=== PATIENT | female | born 1965 | race Caucasian/White ===

== ENCOUNTER 2022-06-16 05:30 | Day surgery (SDC) | payer OTHER ==
[~2022-06-16] VITALS: Ht 157.5 cm; Wt 65.8 kg
[2022-06-16] MEDS ORDERED: CEFAZOLIN SOD 1 GM in D5W 50 ML IV ONE (07:00)
[2022-06-16] MEDS ORDERED: LR 1,000 ML IV SCH (09:15)
[2022-06-16] MEDS ORDERED: ONDANSETRON HCL 4 MG/2 ML VIAL IVP PRN (09:15)
[2022-06-16] MEDS ORDERED: HYDROmorphone 1 MG/ML INJ. CARTRIDGE IVP PRN (09:15)
[2022-06-16] MEDS ORDERED: KETOROLAC TROMETHAMINE 30 MG VIAL IVP PRN (09:15)
[2022-06-16] MEDS ORDERED: D5/0.45 NS 1,000 ML IV SCH (10:00)
[2022-06-16] MEDS ORDERED: HYDROcodone/ACETAMIN 5-325 MG TAB (NORCO/ VICODIN) PO PRN (10:00)
[2022-06-16] MEDS ORDERED: LR 1,000 ML IV.SOLN IV ONE (10:15)
[2022-06-16] MEDS ORDERED: fentaNYL CITRATE 250 MCG/5 ML AMP ONE (10:15)
[2022-06-16] MEDS ORDERED: NS IRRIG SOLN 1000 ML IR ONE (10:15)
[2022-06-16] MEDS ORDERED: BUPIVACAINE /EPINEPHRINE/PF 0.25% 30 ML VIAL INJ ONE (10:15)
[2022-06-16] MEDS ORDERED: PROPOFOL 200MG/ 20ML VIAL (DIPRIVAN) IV ONE (10:15)
[2022-06-16] MEDS ORDERED: ROCURONIUM BROMIDE 10 MG/ML (ZEMURON) ONE (10:15)
[2022-06-16] MEDS ORDERED: SEVOFLURANE 15 MIN GAS INH ONE (10:15)
[2022-06-16] MEDS ORDERED: KETOROLAC TROMETHAMINE 30 MG VIAL ONE (10:15)
[2022-06-16] MEDS ORDERED: NS 1000 ML IV.SOLN IV ONE (10:15)
[2022-06-16] MEDS: HYDROmorphone 1 MG/ML INJ. CARTRIDGE ONE ×2 (10:30→10:43)
[2022-06-16 11:05] VITALS: BP_SYST 135
[2022-06-16] MEDS ORDERED: HYDROcodone/ACETAMIN 5-325 MG TAB (NORCO/ VICODIN) ONE (12:26)
== END 2022-06-16 13:10 | disposition home or self-care (01) ==
LOC: SDS 05:30 → SMU 05:30 → SDS 13:10
PROVIDERS: ATTEND Colon & Rectal Surgery
DX: R59.0 Localized enlarged lymph nodes (principal); K38.8 Other specified diseases of appendix; D49.0 Neoplasm of unspecified behavior of digestive system; Z20.822 Contact with and (suspected) exposure to COVID-19; Z90.710 Acquired absence of both cervix and uterus; Z90.722 Acquired absence of ovaries, bilateral; Z79.899 Other long term (current) drug therapy
CPT/HCPCS: 36415 ×2; 44970; 38531; 88304; 88307; 88341; 88342; 88361; 87426; U0003; J3490; J0690; J1885; J2704; J3010; J1170; J7060; J7120; J7030; C1727; 88305; 88311